=== PATIENT | male | born 1965 | race Caucasian/White ===

== ENCOUNTER 2022-03-25 07:20 | Inpatient (IN) | payer MEDICAID ==
[~2022-03-25] VITALS: Ht 167.6 cm; Wt 79.8 kg
[2022-03-25] VITALS (42 sets, daily range): BP systolic 26–107; BP diastolic 1–62
[~2022-03-25 07:20] MED LIST: VICODIN
[2022-03-25] MEDS ORDERED: SODIUM CHLORIDE 0.9% 1,000 ML IV ONE ×2 (07:45→08:30)
[2022-03-25 08:36] LABS: MEAN CORPUSCULAR HEMOGLOBIN 26.5 pg (28.0-32.0); MEAN CORPUSCULAR VOLUME 88.9 fL (80.0-94.0); MEAN PLATELET VOLUME 10.1 fl (7.4-10.4); PLATELET 77 x1000/uL (130-400); RED BLOOD CELL COUNT 2.46 mill/uL (4.7-6.1); RED CELL DISTRIBUTION WIDTH 19.4 % (11.6-14.6)
[2022-03-25 08:47] LABS: HEMATOCRIT. 21.9 % (42.0-52.0); HEMOGLOBIN. 6.5 g/dL (14.0-18.0)
[2022-03-25 08:49] LABS: CHLORIDE 97 mEq/L (98-107)
[2022-03-25 09:00] LABS: ETHANOL BLOOD 203 mg/dL
[2022-03-25 09:14] LABS: NUCLEATED RED BLOOD CELLS 1 /100 WBC; PLATELET ESTIMATE DECREASED
[2022-03-25] MEDS ORDERED: NOREPINEPHRINE 8MG/250ML PMX 250 ML IV ONE ×2 (09:22→09:30)
[2022-03-25] MEDS ORDERED: PIPERACILLIN/TAZOBACTAM 3.375GM/50ML PREMIX IV NR (09:30)
[2022-03-25] MEDS ORDERED: PIPERACILLIN/TAZ 3.375G PREMIX 50 ML IV NR (09:30)
[2022-03-25] MEDS ORDERED: LIDOCAINE HCL/PF 1% 10 MG/ML 5ML VIAL ONE (09:34)
[2022-03-25] MEDS ORDERED: LIDOCAINE HCL 1% 30ML VIAL (10MG/ML) ONE (11:26)
[2022-03-25] MEDS ORDERED: NOREPINEPHRINE 8 MG in DEXT 5% WATER 242 ML IV PRN (11:45)
[2022-03-25] MEDS ORDERED: DOPAMINE 400MG/250ML PREMIX 250 ML IV ONE (11:52)
[2022-03-25] MEDS ORDERED: PIPERACILLIN/TAZOBACTAM 3.375G in DEXT 5% WATER 50ML IV NR (12:00)
[2022-03-25] MEDS ORDERED: SODIUM BICARBONATE 8.4% 1 MEQ/ML 50ML SYR IV STA (13:07)
[2022-03-25] MEDS ORDERED: SODIUM BICARBONATE 8.4% 1 MEQ/ML 50ML SYR IV ONE (13:15)
[2022-03-25] MEDS: EPINEPHRINE 10 MG in SODIUM CHLORIDE 0.9% 240 ML IV PRN ×5 (13:18→18:42)
[2022-03-25] MEDS: VASOPRESSIN 20 UNIT in SODIUM CHLORIDE 0.9% 99 ML IV PRN ×2 (13:19→18:41)
[2022-03-25] MEDS: PHENYLEPHRINE 100 MG in DEXT 5% WATER 240 ML IV PRN ×2 (13:20→17:13)
[2022-03-25] MEDS ORDERED: DOPAMINE 800MG PREMIX (DOUBLE) 250 ML IV PRN (13:30)
[2022-03-25] MEDS ORDERED: DOPAMINE 400MG/250ML PREMIX 250 ML IV PRN (13:30)
[2022-03-25] MEDS ORDERED: SODIUM BICARBONATE 8.4% 1 MEQ/ML 50ML SYR IV NR ×4 (13:30→16:15)
[2022-03-25] MEDS: NOREPINEPHRINE 32 MG in DEXT 5% WATER 218 ML IV PRN ×2 (13:43→18:42)
[2022-03-25] MEDS ORDERED: CALCIUM CHLORIDE 1GM/10ML SYR IV NR (13:45)
[2022-03-25] MEDS ORDERED: SODIUM BICARBONATE 150 MEQ in DEXTROSE 5% WATER 1,000 ML IV SCH (14:00)
[2022-03-25 15:25] LABS: CHLORIDE 98 mEq/L (98-107)
[2022-03-25 15:30] LABS: BASOPHILS % 0.1 % (0.0-2.0); EOSINOPHILS % 0.2 % (0.0-5.0); LYMPHOCYTES % 9.1 % (20.0-50.0); MEAN CORPUSCULAR HEMOGLOBIN 29.2 pg (28.0-32.0); MEAN CORPUSCULAR VOLUME 100.3 fL (80.0-94.0); MEAN PLATELET VOLUME 9.7 fl (7.4-10.4); MONOCYTES % 2.4 % (2.0-8.0); NEUTROPHILS % 88.2 % (40.0-76.0); RED BLOOD CELL COUNT 1.59 mill/uL (4.7-6.1); RED CELL DISTRIBUTION WIDTH 19.6 % (11.6-14.6)
[2022-03-25] MEDS ORDERED: OCTREOTIDE 1,000 MCG in SODIUM CHLORIDE 0.9% 98 ML IV PRN (15:30)
[2022-03-25 15:44] LABS: HEMATOCRIT. 15.9 % (42.0-52.0); HEMOGLOBIN. 4.6 g/dL (14.0-18.0); PLATELET 24 x1000/uL (130-400)
[2022-03-25 15:47] LABS: CREATINE KINASE 1898 IU/L (39-308)
[2022-03-25 16:48] LABS: BG BASE EXCESS -24.8 mmol/L (-2.0-2.0); BG CARBOXYHEMOGLOBIN 0.6 % (0.5-1.5); BG DEOXYHEMOGLOBIN 6.5 % (0.0-5.0); BG FRACTION INSPIRED OXYGEN 100; BG HCO3 ACT 6.9 mmol/L (22.0-26.0); BG METHEMOGLOBIN 0.5 % (0.0-1.5); BG OXYGEN SATURATION 93.4 % (92.0-98.5); BG OXYHEMOGLOBIN 92.4 % (94.0-97.0); BG PH 6.835 (7.350-7.450); BG PO2 112.6 mmHg (75.0-100.0); BG SAMPLE SITE ALINE; BG TOTAL HEMOGLOBIN 6.1 g/dL (12.0-18.0); BG VENT MODE VENT - AC
[2022-03-25] MEDS ORDERED: PANTOPRAZOLE 80 MG in SODIUM CHLORIDE 0.9% 100 ML IV SCH (17:00)
[2022-03-25] MEDS ORDERED: OCTREOTIDE 1,000 MCG in SODIUM CHLORIDE 0.9% 98 ML IV SCH (17:00)
[2022-03-25 17:04] LABS: PLATELET ESTIMATE MARKEDLY DECREASED
[2022-03-25] MEDS ORDERED: PANTOPRAZOLE SODIUM 40 MG/VIAL IV SCH (17:15)
[2022-03-25] MEDS ORDERED: PHYTONADIONE 10MG/ML AMP SUBCUT SCH (17:15)
[2022-03-25 17:22] LABS: BG BASE EXCESS -20.4 mmol/L (-2.0-2.0); BG CARBOXYHEMOGLOBIN 0.1 % (0.5-1.5); BG DEOXYHEMOGLOBIN 21.1 % (0.0-5.0); BG HCO3 ACT 8.7 mmol/L (22.0-26.0); BG METHEMOGLOBIN 0.7 % (0.0-1.5); BG OXYGEN SATURATION 78.7 % (92.0-98.5); BG OXYHEMOGLOBIN 78.1 % (94.0-97.0); BG PH 7.002 (7.350-7.450); BG PO2 60.6 mmHg (75.0-100.0); BG SAMPLE SITE ALINE; BG TOTAL HEMOGLOBIN 4.7 g/dL (12.0-18.0); BG VENT MODE VENT - AC
[2022-03-25] MEDS ORDERED: CEFEPIME 1,000 MG in DEXTROSE 5% WATER 50 ML IV SCH (17:30)
[2022-03-25] MEDS ORDERED: VANCOMYCIN 1500MG in DEXTROSE 5% WATER 250ML IV NR (18:00)
[2022-03-25 19:27] LABS: FERRITIN 107 ng/mL (22-322)
[2022-03-25 19:36] LABS: VITAMIN B12 SERUM 861 pg/mL (211-911)
[2022-03-25 20:35] LABS: HEPATITIS B SURFACE ANTIGEN NEGATIVE
[2022-03-26] MEDS ORDERED: VANCOMYCIN 1.25GM PMX (XELLIA) 250 ML IV SCH (06:00)
== END 2022-03-25 19:33 | DRG 242 ==
LOC: ER 07:20 → MICUNO 10:29 → EDBEDREQ 10:36 → EDBEDREQTM 10:36 → ENRESERV 10:46
PROVIDERS: ADMIT Internal Medicine; ATTEND Internal Medicine
PROC: 5A2204Z Restoration of Cardiac Rhythm, Single (ICD-10-PCS; principal; 2022-03-25)
PROC: 5A12012 Performance of Cardiac Output, Single, Manual (ICD-10-PCS; 2022-03-25)
PROC: 5A1935Z Respiratory Ventilation, Less than 24 Consecutive Hours (ICD-10-PCS; 2022-03-25)
PROC: 02HV33Z Insertion of Infusion Device into Superior Vena Cava, Percutaneous Approach (ICD-10-PCS; 2022-03-25)
PROC: B548ZZA Ultrasonography of Superior Vena Cava, Guidance (ICD-10-PCS; 2022-03-25)
PROC: 04HY32Z Insertion of Monitoring Device into Lower Artery, Percutaneous Approach (ICD-10-PCS; 2022-03-25)
PROC: 30233N1 Transfusion of Nonautologous Red Blood Cells into Peripheral Vein, Percutaneous Approach (ICD-10-PCS; 2022-03-25)
PROC: 30233K1 Transfusion of Nonautologous Frozen Plasma into Peripheral Vein, Percutaneous Approach (ICD-10-PCS; 2022-03-25)
PROC: 0BH17EZ Insertion of Endotracheal Airway into Trachea, Via Natural or Artificial Opening (ICD-10-PCS; 2022-03-25)
PROC: 30233N1 Transfusion of Nonautologous Red Blood Cells into Peripheral Vein, Percutaneous Approach (ICD-10-PCS; 2022-03-25)
PROC: 30233N1 Transfusion of Nonautologous Red Blood Cells into Peripheral Vein, Percutaneous Approach (ICD-10-PCS; 2022-03-25)
DX: I85.01 Esophageal varices with bleeding (principal); J96.01 Acute respiratory failure with hypoxia; I46.9 Cardiac arrest, cause unspecified; K72.00 Acute and subacute hepatic failure without coma; J69.0 Pneumonitis due to inhalation of food and vomit; A41.9 Sepsis, unspecified organism; N17.0 Acute kidney failure with tubular necrosis; D61.818 Other pancytopenia; R57.1 Hypovolemic shock; G92.8 Other toxic encephalopathy; K70.30 Alcoholic cirrhosis of liver without ascites; E43 Unspecified severe protein-calorie malnutrition; M62.82 Rhabdomyolysis; F10.10 Alcohol abuse, uncomplicated; D68.9 Coagulation defect, unspecified; R73.9 Hyperglycemia, unspecified; G31.2 Degeneration of nervous system due to alcohol; N18.9 Chronic kidney disease, unspecified; I12.9 Hypertensive chronic kidney disease with stage 1 through stage 4 chronic kidney disease, or unspecified chronic kidney disease; I47.20 Ventricular tachycardia, unspecified; K52.9 Noninfective gastroenteritis and colitis, unspecified; K80.20 Calculus of gallbladder without cholecystitis without obstruction; Y90.7 Blood alcohol level of 200-239 mg/100 ml; I49.01 Ventricular fibrillation; K76.6 Portal hypertension; E87.20 Acidosis, unspecified; Z68.28 Body mass index [BMI] 28.0-28.9, adult
CPT/HCPCS: 31500; 36415; 36600; 71045; 74176; 80048; 80053; 80320; 82375; 82550; 82607; 82728; 82746; 82805; 82962; 84145; 84484; 85025; 85044; 86705; 86709; 86803; 86850; 86900; 86920; 86927; 87070; 87340; 93005; 93306; 99291; C9113; J0692; J1265; J2354; J2370; J2543; J3370; J3430; J3490; J7030; J7050; J7060; J7070; P9016; P9017; A4315; G0480